=== PATIENT | male | born 1950 | race Caucasian/White ===

== ENCOUNTER 2022-02-26 08:53 | Emergency (ER) | payer MEDICARE, OTHER, SELFPAY ==
--- NOTE | ~2022-02-26 | CT_ITS ---
EXAMINATION: CT brain wo con DATE: 02/26/2022 09:59 INDICATION: Headache. Fall. TECHNIQUE: Computed tomography (CT) of the head was performed without intravenous contrast. The mA wa s adjusted according to patient size. Iterative reconstruction technique was employed. The dose-lengt h product was 605.33 mGy-cm. COMPARISON: None FINDINGS: There is no intracranial hemorrhage, acute infarction, or abnormal intracranial mass lesion . There are scattered areas of low attenuation in the cerebral white matter, which is within normal l imits for the patient's age. The ventricles are normal in size. There are likely changes of ocular le ns replacement surgeries. There is mild mucosal thickening in the paranasal sinuses. The mastoid air cells are normal. IMPRESSION: 1. Normal aging brain. Reviewed, dictated and finalized at location B. IMPRESSION: 1. Normal aging brain.
[2022-02-26 08:59] VITALS: BP 133/99; PULSE 74; RESP 18; TEMP 36.8; O2SAT 98
--- NOTE | 2022-02-26 09:46 | ED.GENADULT ---
HPI - General Adult General Chief complaint: Unspecified Stated complaint: shooting pain in head Time Seen by Provider: 02/26/22 09:12 Source: patient Mode of arrival: ambulatory Limitations: no limitations History of Present Illness HPI narrative: Patient is 71 years old white male drove himself to the emergency room because of intermittent shooting pain at the right forehead usually last for less than 1second comes back every now and then. Patient denies aggravating or relieving factors, he denies any fever, chills, nausea, vomiting, vision trouble, neck pain, chest pain or shortness of breath. History of multiple skin surgery because of skin cancer on the forehead on the side of the face 2 years ago. Related Data Home Medications Medication Instructions Recorded Confirmed latanoprost 0.005 % eye drops 1 drop EACH EYE QPM 10/24/19 Allergies Allergy/AdvReac Type Severity Reaction Status Date / Time No Known Allergies Allergy Unverified 02/26/22 09:02 Review of Systems Review of Systems: CONSTITUTIONAL: Denies fever, chills, or sweats. EYES: Denies visual changes, redness, or discharge. ENT: Denies rhinorrhea, congestion, sore throat, or otalgia. CARDIOVASCULAR: Denies chest pain, palpitations, or edema. RESPIRATORY: Denies cough or dyspnea. GASTROINTESTINAL: Denies abdominal pain, nausea, vomiting, or diarrhea. GENITOURINARY: Denies dysuria or hematuria. SKIN: Denies rash or itching. MUSCULOSKELETAL: Denies back pain, joint pain, or myalgia. NEUROLOGIC: Denies headache, numbness, or weakness. PSYCHIATRIC: Denies anxiety or depression. PMFSH Family History Family History Other Diabetes mellitus Hypertension Social History Social History Smoking status: Former smoker Smoking end date: 11/08/96 Alcohol intake: never Exam Narrative: General appearance: Well-developed, well-nourished Skin: Normal color, right forehead showed subcutaneous cyst 1 x 1 cm, nontender, soft, not red, no discharge otherwise no erythema, no warmth, no open skin, no localized's Head: Normocephalic, nontraumatic Eyes: Clear conjunctiva ENT: Oropharynx normal, ears normal, nose normal Neck: Supple, nontender Chest and respiratory: Airway patent, no respiratory distress, no accessory muscle use Heart: Regular rate/rhythm Abdomen: Soft, nontender, no organomegaly, quiet bowel sounds Vascular: Normal peripheral pulses, normal capillary refill. Musculoskeletal: Normal range of motion, nontender back Neurologic: Alert and oriented ?3, PROGRAM[employer] is normal as tested, no gross motor deficit Course Course Emergency Course: Stable. Patient headache is not specific to anything serious at this time. Work-up and CT scan of the head showed no abnormality to explain patient presentation, patient was advised to use Tylenol, ibuprofen as needed and to follow-up with a neurologist for further evaluation. Vital Signs Vital signs: Vital Signs Temperature 36.8 C 02/26/22 08:59 Pulse Rate 74 02/26/22 08:59 Respiratory Rate 18 02/26/22 08:59 Blood Pressure 133/99 H 02/26/22 08:59 Pulse Oximetry 98 02/26/22 08:59 Temperature 36.8 C 02/26/22 08:59 Pulse Rate 74 02/26/22 08:59 Respiratory Rate 18 02/26/22 08:59 Blood Pressure 133/99 H 02/26/22 08:59 Pulse Oximetry 98 02/26/22 08:59 Medical Decision Making MDM Narrative Medical decision making narrative: Patient presents with nonspecific shooting pain right forehead. Vital Signs Vital Signs: Vital Signs Temperature 36.8 C 02/26/22 08:59 Pulse Rate 74 02/26/22 08:59 Respirato
[2022-02-26 10:32] LABS: Basophils Absolute Auto 0.1 K/mm3 (0.0-0.1); Basophils Percent Auto 0.6 % (0.2-1.2); Eosinophils Absolute Auto 0.3 K/mm3 (0-0.3); Eosinophils Percent Auto 3.6 % (0-4.4); Hematocrit 47.7 % (42.0-52.0); Hemoglobin 15.3 g/dL (14.0-18.0); Immature Granulocyte Absolute 0.04 K/mm3 (0.00-0.031); Immature Granulocyte Percent A 0.5 % (0-0.5); Lymphocytes Absolute Auto 1.76 K/mm3 (0.9-3.2); Lymphocytes Percent Auto 21.1 % (18.3-44.2); Mean Corpuscular HGB Conc 32.1 g/dl (32-36); Mean Corpuscular Volume 96.8 fl (80-100); Mean Platelet Volume 9.5 fl (7.4-10.4); Monocytes Absolute Auto 0.7 K/mm3 (0.1-0.6); Monocytes Percent Auto 8.5 % (2.6-8.5); Neutrophils Absolute Auto 5.5 K/mm3 (1.3-6.7); Neutrophils Percent Auto 65.7 % (45.5-73.1); Platelet Count Result 287 k/mm3 (150-375); Red Blood Count 4.93 M/mm3 (4.6-6.20); Red Cell Distribution Width 13.7 % (11.5-14.5); White Blood Count 8.4 K/mm3 (4.5-10.0)
[2022-02-26 10:43] LABS: Alanine Aminotransferase 21 U/L (4-50); Albumin Level 4.4 g/dL (3.5-5.1); Alkaline Phosphatase 134 U/L (38-126); Anion Gap 5 mmol/L (8-16); Aspartate Amino Transferase 29 U/L (17-59); Bilirubin,Total 0.6 mg/dL (0.2-1.3); Blood Urea Nitrogen 12 mg/dL (9-20); Calcium 9.2 mg/dL (8.4-10.2); Carbon Dioxide 30 mmol/L (22-30); Chloride 104 mmol/L (98-107); Estimated CRCL calculation 63 ml/min; Estimated Glomerular Filt Rate > 60; Glucose 127 mg/dL (65-110); Potassium 4.5 mmol/L (3.4-5.0); Sodium 139 mmol/L (137-145)
[2022-02-26 10:58] LABS: Erythrocyte Sedimentation Rate 14 mm/hr (0-20)
== END 2022-02-26 11:28 | disposition home or self-care (01) ==
PROVIDERS: Emergency Provider Emergency Medicine; PCP Family Medicine
DX: R51.9 Headache, unspecified (principal)
CPT/HCPCS: 36415; 70450; 80053; 85025; 85652; 99284

== ENCOUNTER 2022-04-13 11:44 | Emergency (ER) | payer MEDICARE, OTHER, SELFPAY ==
[2022-04-13] VITALS (8 sets, daily range): BP systolic 139–165; BP diastolic 66–83; PULSE 74–92; RESP 16; TEMP 36.3; O2SAT 94–99
--- NOTE | ~2022-04-13 | XR_ITS ---
XR wrist LT min 3V 04/13/2022 13:37 Indication: Left wrist pain after fall Procedure: 4 views left wrist Comparison: No prior studies for comparison. 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 There are degenerative changes of the first MCP and IP joints. No erosive changes. No acute fracture or traumatic malalignment. No focal soft ti ssue abnormalities. No radiopaque foreign bodies. Impression: 1: No acute fracture. Reviewed, dictated and finalized at location B. Impression: 1: No acute fracture.
--- NOTE | ~2022-04-13 | CT_ITS ---
EXAMINATION: CT brain wo con DATE: 04/13/2022 13:25 INDICATION: Fall. TECHNIQUE: Computed tomography (CT) of the head was performed without intravenous contrast. The mA wa s adjusted according to patient size. Iterative reconstruction technique was employed. Exam dose: 60 5.33 mGy-cm total exam DLP. COMPARISON: 02/26/2022 CT brain FINDINGS: Bilateral carotid siphon internal carotid artery calcifications. There is nonspecific dimin ished attenuation of the cerebral white matter, likely due to chronic small vessel ischemic changes. No intracranial mass lesion or hemorrhage or cerebrovascular accident, midline shift or mass effect e ffect is noted. There is central and cortical cerebral and cerebellar atrophy. The included mastoid air cells and paranasal sinuses are normally developed and aerated. No fracture or bone destruction of the cranial vault. IMPRESSION: No skull fracture or acute intracranial finding Reviewed, dictated and finalized at Location A. Reviewed, dictated and finalized at location A.
--- NOTE | ~2022-04-13 | XR_ITS ---
XR chest 1V 04/13/2022 13:36 Indication: Status post fall. Chest trauma. Procedure: AP view of the chest Comparison: Comparison to multiple prior studies sequentially, with oldest reviewed study dated 02/24 Findings: There is bibasilar atelectasis. The lungs are hyperinflated which is consistent with, but n ot diagnostic of chronic obstructive pulmonary disease. No pneumothorax. Osteopenia. No acute osseous abnormality identified. There are degenerative changes of the shoulders. Impression: 1: Bibasilar atelectasis. Reviewed, dictated and finalized at location B. Impression: 1: Bibasilar atelectasis.
--- NOTE | ~2022-04-13 | CT_ITS ---
EXAMINATION: CT facial & cervical spine wo DATE: 04/13/2022 13:26 INDICATION: Patient fell and struck chin TECHNIQUE: Computed tomography (CT) of the facial bones and maxillofacial region was performed withou t intravenous contrast. Automated exposure control and iterative reconstruction technique were employ ed. Exam dose: 411.19 mGy-cm total exam DLP. COMPARISON: None. FINDINGS: There is a fracture at the junction of the head and neck of the left mandibular condyle. Th ere is fracture of the neck of the right mandible. There appears to be bilateral anterior temporomand ibular dislocation. The frontozygomatic sutures, orbital rims and biggs and zygomatic arches and remainder of the facial bones appear intact. Paranasal sinuses and mastoid air cells are normally developed and aerated. There is minimal anterolisthesis at C4-5. There is minimal retrolisthesis at C5-C6 in association wit h moderate degenerative disc disease. There is mild degenerative disease at the remaining cervical in terspaces. There is fusion at the apophyseal joints of the left at C2-3 and degenerative change at the apophysea l joints elsewhere throughout the cervical spine. Uncovertebral joint spurring is noted in the mid an d lower cervical spine. C1 and C2 are normally aligned and the odontoid process is intact. No recent cervical spine fracture or locked facet. No prevertebral soft tissue swelling. IMPRESSION: Bilateral fracture/dislocation of the mandible Degenerative changes of the cervical spine Reviewed, dictated and finalized at Location [facility]. Reviewed, dictated and finalized at location A.
--- NOTE | ~2022-04-13 | XR_ITS ---
XR elbow LT min 3V 04/13/2022 13:37 INDICATION: Left elbow pain after fall PROCEDURE: 4 views left elbow COMPARISON: No prior studies for comparison. FINDINGS: There is a possible nondisplaced radial head fracture dorsally seen on lateral view only. T he soft tissues appear within normal limits. No foreign bodies are identified. IMPRESSION: 1: Possible nondisplaced radial head fracture posteriorly seen on lateral view only. Recommend conser vative therapy with follow-up x-rays in 7-to 10 days. Reviewed, dictated and finalized at location B. IMPRESSION: 1: Possible nondisplaced radial head fracture posteriorly seen on lateral view only. Recommend conservative therapy with follow-up x-rays in 7-to 10 days.
--- NOTE | 2022-04-13 13:02 | ED_ITS ---
HPI - Fall General Chief Complaint: Fall Stated Complaint: ground level fall Time Seen by Provider: 04/13/22 12:51 Related Data Home Medications Medication Instructions Recorded Confirmed latanoprost 0.005 % eye drops 1 drop ophthalmic (eye) QPM 10/24/19 gabapentin 100 mg capsule cap 04/13/22 04/13/22 Allergies Allergy/AdvReac Type Severity Reaction Status Date / Time No Known Allergies Allergy Verified 04/13/22 12:52 [facility] Past Medical History Medical History (Updated 04/13/22 @ 13:04 by Rafal Elkins DO) COPD (chronic obstructive pulmonary disease) Family History Family History Other Diabetes mellitus Hypertension Social History Social History Smoking status: Former smoker Smoking end date: 11/08/96 Alcohol intake: never Course Vital Signs Vital signs: Vital Signs Temperature 97.4 F L 04/13/22 11:50 Pulse Rate 92 04/13/22 11:50 Respiratory Rate 16 04/13/22 11:50 Blood Pressure 139/83 04/13/22 11:50 Pulse Oximetry 99 04/13/22 11:50 Temperature 97.4 F L 04/13/22 11:50 Pulse Rate 74 04/13/22 13:45 Respiratory Rate 16 04/13/22 13:45 Blood Pressure 150/66 H 04/13/22 13:45 Pulse Oximetry 98 04/13/22 13:45 Discharge Plan Discharge Prescriptions: No Action albuterol sulfate [Ventolin HFA] 90 mcg/actuation HFA aerosol inhaler 1 puff INHALATION Q4H PRN (Reason: shortness of breath or wheezing) Qty: 8 3RF Advair HFA 115-21 mcg/actuation HFA aerosol inhaler 2 puff INHALATION BID Qty: 8 3RF gabapentin 100 mg capsule latanoprost 0.005 % drops 1 drop EACH EYE QPM Follow-up/Referrals: Gerber Wagner MD [Primary Care Provider] -
--- NOTE | 2022-04-13 13:02 | ED.FALL ---
HPI - Fall General Chief Complaint: Fall Stated Complaint: ground level fall Time Seen by Provider: 04/13/22 12:51 Source: RN notes reviewed History of Present Illness HPI Narrative: Patient presents emergency department from home for fall. Patient states proximally 2 hours prior to arrival he was walking his dog when his dog tried to run off on him and pulled him forward states he landed going forward striking his chin and notes a wound to his chin and had some bleeding states he does have pain in his chin he denies full loss of consciousness denies any neck pain he also states several wound on his left arm that were dressed by EMS patient denies any pain in his arms or legs he denies chest pain shortness of breath abdominal pain nausea vomiting or any other symptoms unsure of his last tetanus shot Related Data Home Medications Medication Instructions Recorded Confirmed latanoprost 0.005 % eye drops 1 drop ophthalmic (eye) QPM 10/24/19 gabapentin 100 mg capsule cap 04/13/22 04/13/22 Allergies Allergy/AdvReac Type Severity Reaction Status Date / Time No Known Allergies Allergy Verified 04/13/22 12:52 Review of Systems Review of Systems: Gen.: Denies fevers or chills Eyes: Denies eye pain or visual change ENT: Denies congestion reports jaw pain Respiratory: Denies shortness of breath or cough CV: Denies chest pain or palpitations GI: Denies abdominal pain nausea, emesis Musculoskeletal: Denies back pain or muscle pain Neuro: Denies loss of consciousness Skin: Reports wounds Except as documented, all other systems reviewed and negative COUNT INCLUDES THE [facility] Past Medical History Medical History (Updated 04/13/22 @ 15:55 by Rafal Elkins DO) COPD (chronic obstructive pulmonary disease) Family History Family History Other Diabetes mellitus Hypertension Social History Social History Smoking status: Former smoker Smoking end date: 11/08/96 Alcohol intake: never Exam Narrative: APPEARANCE: No acute distress, nontoxic, resting in bed EYES: EOMI, PERRL HEENT: Normocephalic, nares patent no tenderness of the bilateral cheeks tenderness of the lower inferior jaw with a stellate 3 cm laceration that is V-shaped that is deep mild venous bleeding and no foreign bodies laceration does go down to the bone there is no open wounds inside the jaw Neck: No midline tenderness palpation, mild tenderness bilateral [place] muscles C5-7 RESPIRATORY: No respiratory distress Clear to auscultation bilaterally with no rhonchi wheezing or rales. CARDIOVASCULAR: Regular rate and rhythm without murmurs rubs or gallops. ABDOMINAL: Soft, nontender, nondistended, no rebound or guarding MUSCULOSKELETAl: Moves all extremities. No clubbing, cyanosis or edema. No tenderness of the right upper extremity bilateral lower extremities no tenderness of the left elbow wrist or shoulder full range of motion of both radial pulse 2+ neurovascular tact NEURO: Awake and alert x 3. Following commands, speech normal, no focal deficits SKIN:: Warm, dry. No rashes large superficial skin tear over the left dorsal wrist as well as the left lateral proximal forearm mild venous bleeding no signs of infection PSYCHIATRIC: Normal affect/mood, Course Course Emergency Course: Discussed with patient results of work-up and need to talk with facial plastics which I do not have available they are requesting [facility] Called and discussed with Dr. Harding. Who initially after review of symptoms recommend the patient be discharged home given Augmentin with laceration repair and follow-up in the clinic however they are unable to come in at the patient the clinic and this time is felt the patient is to be transferred to the ED patient is then accepted by Dr. Mariano at the emergency department. Discussed with patient family plan for transfer in [facility]
[2022-04-13] MEDS: TETANUS,DIPHTHERIA,AC PERTUSSIS ADULT (0.5 ML) BOOSTRIX IM (14:19)
[2022-04-13] MEDS: AMPICILLIN SULB 3 GM/NS 100 ML 3 GM/100 ML VIAL IVPB (17:02)
== END 2022-04-13 16:10 | disposition short-term general hospital (02) ==
PROVIDERS: Emergency Provider Emergency Medicine; PCP Family Medicine
DX: S02.609A Fracture of mandible, unspecified, initial encounter for closed fracture (principal); S52.125A Nondisplaced fracture of head of left radius, initial encounter for closed fracture; S01.81XA Laceration without foreign body of other part of head, initial encounter; S40.922A Unspecified superficial injury of left upper arm, initial encounter; J44.9 Chronic obstructive pulmonary disease, unspecified; W01.0XXA Fall on same level from slipping, tripping and stumbling without subsequent striking against object, initial encounter; Z23 Encounter for immunization
CPT/HCPCS: 12013; 70450; 70486; 71045; 72125; 73080; 73110; 90471; 90715; 96374; 96375; 99285; A4565; J0131; J0295

== ENCOUNTER → 2022-09-21 09:56 | Outpatient (CLI) | payer MEDICARE, OTHER, SELFPAY ==
--- NOTE | ~2022-09-21 | US_ITS ---
EXAMINATION: US soft tissue groin LT DATE: 09/21/2022 10:42 INDICATION: Left lower quadrant pain TECHNIQUE: Multiple grayscale and Doppler ultrasound images of the region of pain at the left groin w ere obtained. COMPARISON: None FINDINGS: There is a moderate-sized hernia in the left inguinal region measuring 5.1 cm transversely and 5.0 cm in length. The hernia contains echogenic fat and peristalsing and shadowing bowel which appears incr eased in amount within the hernia sac with Valsalva and decrease in amount but not resolve at the con clusion of Valsalva. The shadowing bowel obscures the region of the orifice of the hernia and is uncl ear whether this represents a direct inguinal hernia, indirect inguinal hernia or potentially femoral hernia. IMPRESSION: 1. Moderate-sized hernia containing peristalsing bowel at the left groin. It is unclear whether this represents a direct inguinal hernia, indirect inguinal hernia or potentially femoral hernia. Reviewed, dictated and finalized at location B. HOLDER IMPRESSION: 1. Moderate-sized hernia containing peristalsing bowel at the left groin. It is unclear whether this represents a direct inguinal hernia, indirect inguinal he rnia or potentially femoral hernia.
== END ==
PROVIDERS: PCP Nurse Practitioner Family; Visit Provider Nurse Practitioner Family
DX: M79.89 Other specified soft tissue disorders (principal); R10.32 Left lower quadrant pain; K46.9 Unspecified abdominal hernia without obstruction or gangrene
CPT/HCPCS: 76882

== ENCOUNTER 2023-03-16 09:55 | Outpatient (CLI) | payer MEDICARE, OTHER, SELFPAY ==
[2023-03-16 14:04] LABS: Hematocrit 45.3 % (42.0-52.0); Hemoglobin 14.5 g/dL (14.0-18.0); Mean Corpuscular Hemoglobin 30.8 pg (26-34); Mean Corpuscular Volume 96.2 fl (80-100); Mean Platelet Volume 9.9 fl (7.4-10.4); Platelet Count Result 307 k/mm3 (150-375); Red Blood Count 4.71 M/mm3 (4.6-6.20); Red Cell Distribution Width 13.5 % (11.5-14.5); White Blood Count 8.8 K/mm3 (4.5-10.0)
[2023-03-16 14:13] LABS: Alanine Aminotransferase 26 U/L (6-50); Albumin Level 4.1 g/dL (3.5-5.1); Alkaline Phosphatase 118 U/L (38-126); Anion Gap 5 mmol/L (8-16); Aspartate Amino Transferase 39 U/L (17-59); Bilirubin,Total 0.8 mg/dL (0.2-1.3); Blood Urea Nitrogen 13 mg/dL (9-20); Calcium 8.8 mg/dL (8.4-10.2); Carbon Dioxide 29 mmol/L (22-30); Chloride 103 mmol/L (98-107); Cholesterol 178 mg/dL (0-200); Estimated Glomerular Filt Rate > 60; Glucose 112 mg/dL (65-110); HDL Direct 35 mg/dL; Potassium 4.1 mmol/L (3.4-5.0); Sodium 137 mmol/L (137-145); Triglycerides 59 mg/dL (<150)
[2023-03-16 14:16] LABS: Appearance Urine Clear (Clear); Bilirubin Urine Negative (Negative); Blood Urine Negative (Negative); Color Urine Yellow (Yellow); Glucose Urine UA Negative (Negative); Ketones Urine Negative (Negative); Leukocyte Esterase Ur Negative LEU/UL (NEGATIVE); Nitrate Urine Negative (Negative); Protein Urine Negative (Negative); Specific Grav Ur 1.021 (1.001-1.035); pH Urine 5.5 (5.0-9.0)
[2023-03-16 14:18] LABS: Add Urine Microscopic? NO
[2023-03-16 14:24] LABS: LDL Cholesterol Direct 125 mg/dL
[2023-03-16 14:33] LABS: Hemoglobin A1C 6.3 % (<5.7)
[2023-03-16 14:41] LABS: Prostate Specific Antigen 1.9 ng/mL (< OR = 4.0)
== END 2023-03-16 09:56 | disposition home or self-care (01) ==
LOC: ANHGOSHLAB 09:59
PROVIDERS: PCP Family Medicine; Visit Provider Physician Assistant
DX: R73.01 Impaired fasting glucose (principal); J44.9 Chronic obstructive pulmonary disease, unspecified; E78.5 Hyperlipidemia, unspecified; Z12.5 Encounter for screening for malignant neoplasm of prostate
CPT/HCPCS: 36415; 80053; 80061; 81003; 83036; 84153; 84443; 85027; G0103

== ENCOUNTER 2023-03-25 10:28 | Outpatient (CLI) | payer MEDICARE, OTHER, SELFPAY ==
--- NOTE | 2023-03-25 10:30 | ECG_ITS ---
Measurements Intervals [place] Rate: 75 P: 40 AK: 168 QRS: 70 QRSD: 90 T: 64 QT: 366 QTc: 411 Interpretive Statements SINUS RHYTHM BASELINE ARTIFACT- I, II, III, AVR, AVL, AVF, V1-V2 NORMAL ECG NO PREVIOUS ECG AVAILABLE FOR COMPARISON Electronically Signed On 03-25-2023 11:48:08 CDT by Anton Berger D.O.
== END 2023-03-25 10:29 | disposition home or self-care (01) ==
PROVIDERS: PCP Family Medicine; Visit Provider Surgery
DX: Z01.818 Encounter for other preprocedural examination (principal); K40.90 Unilateral inguinal hernia, without obstruction or gangrene, not specified as recurrent; Z87.891 Personal history of nicotine dependence
CPT/HCPCS: 36415; 86850; 86900; 86901; 93005

== ENCOUNTER 2023-03-30 00:06 | Day surgery (SDC) | payer MEDICARE, OTHER, SELFPAY ==
--- NOTE | 2022-11-23 13:11 | PC.NURSE ---
Report to the Outpatient Waiting Room, entrance under the green pavilion located off [facility], at time _0830 on date __12/02/22 . Planned Procedure Time: __1030 . Time changes happen often and if your time is changed the preop area will call you the afternoon before. - You and your visitor will be asked to self-screen and do not enter if you have any COVID symptoms. - Only one visitor is requested with a max of two and NO children visitors are allowed at this time. - The patient visitor may be requested to leave or wait in car when not with patient due to distancing restrictions. - A mask is optional within the hospital. Patients may have clear liquids (water, carbonated beverages, clear teas, apple juice) until 3 hours prior to surgery with a maximum of 20 ounces. - No food from midnight until time of surgery - Infants may have breast milk until 4 hours before surgery, formula 6 hours prior to surgery. - Children will be allowed to drink immediately following surgery. If applicable, please bring a bottle or sippy cup to assist with drinking. Juice, water, soda, and popsicles are readily available. For infants on formula, please bring formula the day of surgery. Pacifiers are allowed. Take the following medications with a SIP of water the morning of surgery: __ADVAIR INHALER Medications to discontinue per physician ALL VITAMIN AND SUPPLEMENTS 3 DAYS PRE OP LAST DOSE 11/28/22 HIBICLENS SHOWER MORNING OF SURGERY Please no make-up, nail yi, hairspray, perfume, deodorant, or body powder the day of surgery. No jewelry (including any body piercings) or valuables the day of surgery, leave them at home. Please take a shower or bath the night before, or the morning of, surgery with an antibacterial soap. Wear comfortable, loose fitting clothing. Children are encouraged to wear pajamas. - Jewelry must be removed prior to entering the operating room. Rings and piercings that are not removed may be cut off. - The hospital will not accept responsibility for valuables. - Please leave all valuables, including medications, at home the day of surgery. If you are going home after surgery, a licensed drivers' cash clerk must drive you home. - NO public transportation without another adult if you receive anesthesia. - We recommend that an adult stay with you for 24 hours following discharge. - We also recommend that you do not drive, make important decision, drink alcoholic beverages, or take any drugs that were not prescribed by your health care provider for at least 24 hours after your discharge time. Follow any additional instructions given to you from your surgeon. If you or anyone in your household have experienced Covid symptoms in the past week, please notify your surgeon or the nurse liaison at the phone number below for possible testing. Telephone instructions given to ___PATIENT and asked if any additional questions and then verbalized understanding. Patient advised to call surgeon office or pre surgery nurse liaison [phone] if any additional questions.
[2022-11-23 13:18] VITALS: BMI 26.3
[2023-03-22 12:58] VITALS: BMI 26.3
--- NOTE | 2023-03-22 13:04 | PC.NURSE ---
Report to the Outpatient Waiting Room, entrance under the green pavilion located off [facility], at time __1100 on date ___03/30/23____. Planned Procedure Time: ___1300 . Time changes happen often and if your time is changed the preop area will call you the afternoon before. - You and your visitor will be asked to self-screen and do not enter if you have any COVID symptoms. - A mask is optional within the hospital at this time. Patients may have clear liquids (water, carbonated beverages, clear teas, apple juice) until 3 hours prior to surgery with a maximum of 20 ounces. - No food from midnight until time of surgery - Infants may have breast milk until 4 hours before surgery, infant formula 6 hours prior to surgery. - Children will be allowed to drink immediately following surgery. If applicable, please bring a bottle or sippy cup to assist with drinking. Juice, water, soda, and popsicles are readily available. For infants on formula, please bring formula the day of surgery. Pacifiers are allowed. Take the following medications with a SIP of water the morning of surgery: ____ADVAIR INHALER DO NOT STOP ANY OF YOUR OTHER PRESCRIPTION MEDICATIONS PRIOR TO SURGERY ?EXCEPT THE FOLLOWING Medications to discontinue per physician _ALL VITAMINS/SUPPLEMENTS 3 DAYS PRE OP.LAST DOSE 03/26/23 Please no make-up, nail [place], hairspray, perfume, deodorant, or body powder the day of surgery. No jewelry (including any body piercings) or valuables the day of surgery, leave them at home. Please take a shower or bath the night before, or the morning of, surgery with an antibacterial soap. Wear comfortable, loose fitting clothing. Children are encouraged to wear pajamas. - Jewelry must be removed prior to entering the operating room. Rings and piercings that are not removed may be cut off. - The hospital will not accept responsibility for valuables. - Please leave all valuables, including medications, at home the day of surgery. HIBICLENS SHOWER MORNING OF SURGERY If you are going home after surgery, a licensed test driver must drive you home. - NO public transportation without another adult if you receive anesthesia. - We recommend that an adult stay with you for 24 hours following discharge. - We also recommend that you do not drive, make important decision, drink alcoholic beverages, or take any drugs that were not prescribed by your health care provider for at least 24 hours after your discharge time. For Pediatric surgeries, we recommend two adults accompany the child home. Follow any additional instructions given to you from your surgeon. If you or anyone in your household have experienced Covid symptoms in the past week, please notify your surgeon or the nurse liaison at the phone number below for possible testing. Telephone instructions given to ___PATIENT and asked if any additional questions and then verbalized understanding. Patient advised to call surgeon office or pre surgery nurse liaison [phone] if any additional questions.
[2023-03-30] VITALS (11 sets, daily range): BP systolic 93–129; BP diastolic 43–65; PULSE 68–95; RESP 13–19; TEMP 36.1–36.7; O2SAT 92–99; BMI 25.9
[2023-03-30] MEDS: ACETAMINOPHEN 500 MG TABLET 1000 MG PO (11:29)
[2023-03-30] MEDS: KETOROLAC 15 MG/ML VIAL (*BKC) IV PUSH (11:30)
[2023-03-30] MEDS: LACTATED RINGERS 1,000 ML 30 ML IV CONT ×2 (11:30→15:15)
--- NOTE | 2023-03-30 12:33 | WPDHPUPDATE1 ---
History and Physical Update Update Date/Time: 03/30/23 12:33 History and Physical has been reviewed, including an updated exam of the patient. There are NO changes in the patient's condition. Risks, benefits, and alternatives have been discussed and questions answered. Patient agrees to proceed with procedure.
--- NOTE | 2023-03-30 12:34 | PM.IMHP ---
H&P: HPI History of Present Illness Date/Time: 03/30/23 12:34 Chief Complaint: Left inguinal hernia Narrative: This is a 72-year-old man presents left inguinal hernia repair. He has been experiencing symptoms from this hernia for several years. He reports no changes since last seen the office. Review of Systems Review of Systems: All systems reviewed & are unremarkable except as noted in HPI and below Constitutional: Constitutional: Denies chills, Denies fever(s), Denies headache(s) and Denies weight loss Eyes: Eyes: Denies change in vision ENT: Denies dizziness, Denies headache(s), Denies neck mass and Denies throat swelling Cardiovascular: Cardiovascular: Denies chest pain, Denies lightheadedness and Denies dyspnea Respiratory: Respiratory: Denies cough, Denies dyspnea and Denies wheezing Gastrointestinal: Gastrointestinal: Denies abdominal pain, Denies change in bowel habits, Denies nausea and Denies vomiting Genitourinary: Genitourinary: Denies hematuria and Denies dysuria Musculoskeletal: Musculoskeletal: Reports as per HPI Integumentary/Breasts: Skin/Breast: Reports as per HPI Neurologic: Denies dizziness and Denies headache(s) Allergic/Immunologic: Allergic/Immunologic: Denies throat swelling and Denies wheezing PMFSH Past Medical History Medical History COPD (chronic obstructive pulmonary disease) Hepatitis B Other specified soft tissue disorders Skin cancer Surgical History Surgical History H/O right inguinal hernia repair H/O umbilical hernia repair Family History Family History Other Diabetes mellitus Hypertension Social History Social History Smoking packs per day: 2 Smoking cigarettes per day: 40.0 Years smoked: 15 Smoking pack-years: 30.00 Smoking status: Former smoker Tobacco type: cigarettes Smoking end date: 11/08/01 Alcohol intake: never Living arrangements: with family Occupation/Education: retired Spiritual care concerns: No Meds Home Medications and Allergies Home Medications Medication Instructions Recorded Confirmed Type latanoprost 0.005 % eye drops 1 drop ophthalmic (eye) QPM 10/24/19 03/22/23 History fluticasone propionate 115 2 puff inhalation BID #8 grams 04/22/22 03/30/23 Rx mcg-salmeterol 21 mcg/actuation HFA inhaler (Advair HFA) vitamins A,C,K-rnsy-aspkhs 4,296 1 cap PO DAILY 11/23/22 12/15/22 History mcg-226 mg-90 mg capsule (PreserVision AREDS) albuterol sulfate 90 mcg/actuation 1 puff inhalation Q4H PRN 01/13/23 03/22/23 Rx aerosol inhaler (Ventolin HFA) shortness of breath or wheezing #8 grams Allergies Allergy/AdvReac Type Severity Reaction Status Date / Time No Known Allergies Allergy Verified 03/30/23 12:29 Exam Const: General: no acute distress and alert Orientation/consciousness: patient oriented x3 HENMT: Head: normocephalic and atraumatic Ears: hearing grossly normal bilaterally Face/Nose/Sinus: Normal nares present Mouth: Yes Normal oral and palatal mucosa present Eyes: Periorbital: periorbital findings normal Sclera: sclerae normal EOM: EOMs intact bilaterally Neck: Neck: normal visual inspection, no lymphadenopathy and trachea midline Chest: Chest palpation & inspection: normal inspection of the chest Resp: Effort & Inspection: normal respiratory effort Auscultation: clear to auscultation bilaterally Cardio: Jugular venous distension: no JVD Rate: regular rate Rhythm: regular rhythm Heart sounds: S1 normal heart sound present and S2 normal heart sound present Peripheral pulses: Peripheral pulses 2+ throughout GI: Inspection: normal to inspection GI Palp: Yes Soft to palpation, No Tenderness to palpation present (GI), No Guarding due to palpation present (
--- NOTE | 2023-03-30 12:44 | WPDANESEPPF ---
Anes - Initial Pre Proc Eval Procedure: Operation Date: 12/02/22 10:30 Proposed Procedures p Laparoscopic Left Inguinal Hernia Repair with Mesh, Chris Assisted - Thomas Barber DO Operation Date: 03/30/23 13:00 Proposed Procedures p Laparoscopic Left Inguinal Hernia Repair with Mesh, Heverincreji Assisted - Thomas Barber DO Date/Time: 03/30/23 12:44 Surgeon: Thomas Barber DO Pre Op Diagnosis: Lt Ing Hernia Patient Data Age: 72 Gender: M Height: 1.7 m Weight: 75.1 kg Last Vital Signs Temp 36.7 C 03/30/23 11:05 Pulse 95 03/30/23 11:05 Resp 18 03/30/23 11:05 BP 129/59 L 03/30/23 11:05 Pulse Ox 96 03/30/23 11:05 O2 Del Method Room Air 03/30/23 11:05 Allergies Allergy/AdvReac Type Severity Reaction Status Date / Time No Known Allergies Allergy Verified 03/30/23 12:29 Home Medications Medication Instructions Recorded Confirmed Type latanoprost 0.005 % eye drops 1 drop ophthalmic (eye) QPM 10/24/19 03/22/23 History fluticasone propionate 115 2 puff inhalation BID #8 grams 04/22/22 03/30/23 Rx mcg-salmeterol 21 mcg/actuation HFA inhaler (Advair HFA) vitamins A,C,Q-opdl-wyifjo 4,296 1 cap PO DAILY 11/23/22 03/30/23 History mcg-226 mg-90 mg capsule (PreserVision AREDS) albuterol sulfate 90 mcg/actuation 1 puff inhalation Q4H PRN 01/13/23 03/22/23 Rx aerosol inhaler (Ventolin HFA) shortness of breath or wheezing #8 grams Patient hx anesthesia problems: none Family hx anesthesia problems: none Results Review: All pre-operative results and documents have been reviewed as part of the pre-operative evaluation. [facility] Past Medical History Medical History COPD (chronic obstructive pulmonary disease) Hepatitis B Other specified soft tissue disorders Skin cancer Surgical History Surgical History H/O right inguinal hernia repair H/O umbilical hernia repair Family History Family History Other Diabetes mellitus Hypertension Social History Social History Smoking packs per day: 2 Smoking cigarettes per day: 40.0 Years smoked: 15 Smoking pack-years: 30.00 Smoking status: Former smoker Tobacco type: cigarettes Smoking end date: 11/08/01 Alcohol intake: never Living arrangements: with family Occupation/Education: retired Spiritual care concerns: No Anes - Eval Final PreProcedure Day of Procedure 03/30/23 12:44 Patient weight: overweight Heart: regular rate and rhythm Lungs: clear to auscultation Airway: Mallampati scale class II Neurological: alert and oriented Last oral intake: >/= 8 hours ASA classification: III Emergent: no Anesthetic plan: proceed Anesthesia type and monitoring: general ETT and standard monitoring Results Review: All pre-operative results and documents have been reviewed as part of the pre-operative evaluation. Informed Consent: The patient's anesthetic plan and its attendant risks and benefits were discussed with the patient/family/POA. Questions were solicited and answers provided to the satisfaction of the patient/family/POA.
[2023-03-30] MEDS: ceFAZolin 2 GM/D5W 50 ML 2 GM/50 ML BAG IVPB (12:56)
[2023-03-30] MEDS: BUPIVACAINE/EPINEPHRINE 0.5% 50 ML VIAL 30 ML INFILTRATE (13:42)
--- NOTE | 2023-03-30 14:53 | W.PM.PROC2 ---
Procedure Note - Detailed Date of Procedure 03/30/23 Pre-op Diagnosis Left inguinal hernia Post-op Diagnosis Other (Incarcerated left inguinal hernia, small bowel adhesions) Procedure Performed 1. Laparoscopic incarcerated left inguinal hernia repair with mesh, da Carline assisted 2. Laparoscopic enterolysis, da Carline assisted 3. Laparoscopic repair of small-bowel serosal tear, da Carline assisted Surgeon Thomas Barber, DO Anesthesia General and Local (0.5% bupivacaine with epinephrine) Indications This is a 72-year-old man who presented with a left inguinal hernia that he noticed a few years ago. It has progressively increased in size, but does not cause any significant pain. He does have occasional discomfort, but when he does lay down the size of the hernia usually decreases. He was found to have a left inguinal hernia on exam. Discussions were made with the patient about treatment options and decision was made to proceed with robotic assisted laparoscopic left inguinal hernia repair with mesh. Findings Upon inspecting the abdomen laparoscopically, there did appear to be small bowel adhesions up to the previous umbilical hernia repair mesh. I had to take these adhesions down to adequately visualize the lower abdomen for the hernia repair. These small bowel adhesions were tethered very closely to the mesh and there were 2 small bowel serosal injuries the surface as the adhesiolysis was performed. These serosal tears were inherent to the nature of this surgery. The serosal tears were repaired using 3-0 Vicryl Lembert imbricating sutures. I did not see any full-thickness bowel injuries or any other significant abnormalities. Upon inspecting the left lower quadrant I did identify a left indirect inguinal hernia that was containing sigmoid colon. This was very difficult to reduce at 1st and took a significant amount adhesiolysis order to completely reduce the sigmoid from within the hernia defect. The sigmoid colon all appeared healthy and viable. Robotic transabdominal preperitoneal approach was then utilized for left hernia repair. Placed a large left Bard 3DMax mid mesh overlying the entire left myopectineal orifice. No specimens were obtained for pathology. Description of Procedure Procedure as well as risks, benefits, and alternatives were discussed with the patient. Written consent was obtained and placed in chart prior to procedure. Patient was brought back to surgical suite. He was placed supine on operating table. Time-out was done to confirm patient and procedure. He was then intubated by Anesthesia Department. His abdomen was prepped and draped in sterile fashion using chlorhexidine prep. 0.5% bupivacaine with epinephrine was infiltrated at each location for incision. An 8 mm incision was made in the left lateral abdomen, and a 5 mm Optiview trocar was advanced through the abdominal layers under direct visualization. Once inside the abdominal cavity, carbon dioxide insufflation was used to create a pneumoperitoneum. A camera was inserted and the abdominal cavity was inspected. The patient was placed in slight Trendelenburg position. An 8 millimeter incision was made on the right lateral abdomen and an 8 millimeter trocar was inserted under direct visualization. Another 8 millimeter incision was made just superior to the umbilicus and an 8 millimeter trocar was inserted under direct visualization. The 5 mm port was then removed and this was replaced with another 8 mm robotic port. The robotic arms were brought up to the patient's bedside and secured to the ports. The camera and instruments were inserted. I then moved over to the robotic console and took control of the camera and instruments. There were 2 loops of small bowel adherent to an umbilical hernia mesh. These adhesions were carefully taken down using curved scissors. Once I was able to take both these loops of small bowel down the rest of the mesh appeared visible and intact a
[2023-03-30] MEDS: fentaNYL CITRATE INJ (*CRX) 100 MCG/2 ML VIAL 25 MCG IV PUSH (16:15)
[2023-03-30] MEDS: oxyCODONE HCL (*CRX) 5 MG TAB IR PO (17:10)
== END 2023-03-30 18:25 | disposition home or self-care (01) ==
PROVIDERS: PCP Family Medicine; Visit Provider Surgery
PROC: 8E0Y4CZ Robotic Assisted Procedure of Lower Extremity, Percutaneous Endoscopic Approach (ICD-10-PCS; CPT 49650; principal; 2023-03-30 13:00)
DX: K40.30 Unilateral inguinal hernia, with obstruction, without gangrene, not specified as recurrent (principal); K66.0 Peritoneal adhesions (postprocedural) (postinfection); K91.72 Accidental puncture and laceration of a digestive system organ or structure during other procedure; J44.9 Chronic obstructive pulmonary disease, unspecified; Z79.51 Long term (current) use of inhaled steroids; Z87.891 Personal history of nicotine dependence
CPT/HCPCS: 49650; 44238; S2900; A9270; C1781; J0690; J1100; J1170; J1885; J2370; J2405; J2704; J2710; J3010; J7120

== ENCOUNTER → 2023-05-19 10:24 | Outpatient (CLI) | payer MEDICARE, OTHER, SELFPAY ==
--- NOTE | ~2023-05-19 | CT_ITS ---
EXAMINATION: CT abdomen pelvis w con DATE: 05/19/2023 10:53 INDICATION: Left inguinal hernia without obstruction TECHNIQUE: Computed tomography (CT) of the abdomen and pelvis was performed with 100 mL Omnipaque-350 intravenous contrast. Automated exposure control and iterative reconstruction technique were employe d. The dose-length product was 596.07 mGy-cm. COMPARISON: CT dated 03/06/2004 FINDINGS: Mild emphysema at the lung bases. Mild discoid atelectasis at the dependent lung bases, right greater than left. Heart size is normal. No pericardial or pleural effusion. Liver, decompressed gallbladder , spleen, bilateral adrenal glands and kidneys are normal. Dystrophic calcifications at the head and uncinate process of the pancreas along with a 1.3 cm cystic lesion at the uncinate process likely seq uela of chronic pancreatitis. Bladder is normal. Prostatomegaly. No bowel obstruction. Postoperative change of prior left inguinal hernia repair. No evident recurrent hernia. No free intraperitoneal gas or fluid. No pathologically enlarged abdominal or pelvic lymphadenopathy. Severe lumbar spondylosis with anterior fusion at L1-L2. Left total hip arthroplasty. IMPRESSION: 1. Postoperative change of left inguinal hernia repair with no evident recurrent hernia or bowel obst ruction. 2. 1.3 cm cystic lesion at the uncinate process of the pancreas where there are some dystrophic calci fic location consistent with chronic pancreatitis which would favor a dilated side branch or pseudocy st as etiology of the cystic lesion. The differential diagnosis would also include less likely intrad uctal papillary mucinous neoplasm (IPMN), mucinous cystic neoplasm (MCN), and the less common serous cystadenoma and neuroendocrine tumor. Recommend year follow-up pre and postcontrast MRI or CT. 3. Prostatomegaly. Reviewed, dictated and finalized at location A. IMPRESSION: 1. Postoperative change of left inguinal hernia repair with no evident recurren t hernia or bowel obstruction. 2. 1.3 cm cystic lesion at the uncinate process of the pancreas where there are some dystrophic calcific location consistent with chronic pancreatitis which w ould favor a dilated side branch or pseudocyst as etiology of the cystic lesion . The differential diagnosis would also include less likely intraductal papilla ry mucinous neoplasm (IPMN), mucinous cystic neoplasm (MCN), and the less commo n serous cystadenoma and neuroendocrine tumor. Recommend year follow-up pre and postcontrast MRI or CT. 3. Prostatomegaly.
[2023-05-19 10:43] LABS: Estimated Glomerular Filt Rate > 60
== END ==
PROVIDERS: PCP Family Medicine; Visit Provider Surgery
DX: K40.90 Unilateral inguinal hernia, without obstruction or gangrene, not specified as recurrent (principal); N40.0 Benign prostatic hyperplasia without lower urinary tract symptoms; K86.9 Disease of pancreas, unspecified
CPT/HCPCS: 74177; Q9967

== ENCOUNTER 2023-07-28 00:09 | Day surgery (SDC) | payer MEDICARE, OTHER, SELFPAY ==
--- NOTE | 2023-07-22 13:23 | PC.NURSE ---
Report to the Outpatient Waiting Room, entrance under the green pavilion located off [facility], at time _0600 on date _07/28/23 . Planned Procedure Time: __0730 . Time changes happen often and if your time is changed the preop area will call you the afternoon before. - You and your visitor will be asked to self-screen and do not enter if you have any COVID symptoms. - A mask is optional within the hospital at this time. Patients may have clear liquids (water, carbonated beverages, clear teas, apple juice) until 3 hours prior to surgery with a maximum of 20 ounces. - No food from midnight until time of surgery - Infants may have breast milk until 4 hours before surgery, formula 6 hours prior to surgery. - Children will be allowed to drink immediately following surgery. If applicable, please bring a bottle or sippy cup to assist with drinking. Juice, water, soda, and popsicles are readily available. For infants on formula, please bring formula the day of surgery. Pacifiers are allowed. Take the following medications with a SIP of water the morning of surgery: ___ADVAIR INHALER DO NOT STOP ANY OF YOUR OTHER PRESCRIPTION MEDICATIONS PRIOR TO SURGERY ?EXCEPT THE FOLLOWING Medications to discontinue per physician ____PRESERVISION HOLD 3 DAYS PRE OP.LAST DOSE07/24/23 Please no make-up, nail portuguese, hairspray, perfume, deodorant, or body powder the day of surgery. No jewelry (including any body piercings) or valuables the day of surgery, leave them at home. Please take a shower or bath the night before, or the morning of, surgery with an antibacterial soap. Wear comfortable, loose fitting clothing. Children are encouraged to wear pajamas. - Jewelry must be removed prior to entering the operating room. Rings and piercings that are not removed may be cut off. - The hospital will not accept responsibility for valuables. - Please leave all valuables, including medications, at home the day of surgery. If you are going home after surgery, a licensed semi driver must drive you home. - NO public transportation without another adult if you receive anesthesia. - We recommend that an adult stay with you for 24 hours following discharge. - We also recommend that you do not drive, make important decision, drink alcoholic beverages, or take any drugs that were not prescribed by your health care provider for at least 24 hours after your discharge time. For Pediatric surgeries, we recommend two adults accompany the child home. Follow any additional instructions given to you from your surgeon. If you or anyone in your household have experienced Covid symptoms in the past week, please notify your surgeon or the nurse liaison at the phone number below for possible testing. Telephone instructions given to _PATIENT and asked if any additional questions and then verbalized understanding. Patient advised to call surgeon office or pre surgery nurse liaison [phone] if any additional questions.
[2023-07-22 13:28] VITALS: BMI 26.3
--- NOTE | 2023-07-27 14:38 | WPDANESEPPF ---
Anes - Initial Pre Proc Eval Procedure: Operation Date: 07/28/23 07:30 Proposed Procedures p Excision of Neoplasm Right Medial Forehead, Excision Neoplasm Right Nasal Sidewall with Frozen Section, Possible Full Thickness Skin Graft or Local Tissue Transfer - Rafal Salinas MD Date/Time: 07/27/23 14:38 Surgeon: Rafal Salinas MD Pre Op Diagnosis: Neoplasm Right Medial Forehead (Cont) Patient Data Age: 72 Gender: M Height: 1.7 m Weight: 76.3 kg Allergies Allergy/AdvReac Type Severity Reaction Status Date / Time No Known Allergies Allergy Verified 07/27/23 11:15 Home Medications Medication Instructions Recorded Confirmed Type latanoprost 0.005 % eye drops 1 drop ophthalmic (eye) QPM 10/24/19 07/27/23 History vitamins A,C,T-ceho-axnmdd 4,296 1 cap PO DAILY 11/23/22 07/27/23 History mcg-226 mg-90 mg capsule (PreserVision AREDS) albuterol sulfate 90 mcg/actuation 1 puff inhalation Q4H PRN 06/15/23 07/27/23 Rx aerosol inhaler (Ventolin HFA) shortness of breath or wheezing #8 grams fluticasone propionate 115 2 puff inhalation BID #24 grams 06/16/23 07/27/23 Rx mcg-salmeterol 21 mcg/actuation HFA inhaler (Advair HFA) tamsulosin 0.4 mg capsule (Flomax) 0.8 mg PO QHS #60 caps 07/27/23 07/27/23 Rx Patient hx anesthesia problems: none Family hx anesthesia problems: none Results Review: All pre-operative results and documents have been reviewed as part of the pre-operative evaluation. [facility] Past Medical History Medical History BPH w urinary obs/LUTS COPD (chronic obstructive pulmonary disease) Cyst of pancreas Hepatitis B Other specified soft tissue disorders Skin cancer Surgical History Surgical History H/O right inguinal hernia repair H/O umbilical hernia repair S/P inguinal hernia repair Laparoscopic incarcerated left inguinal hernia repair with mesh, da Carline assisted 2. Laparoscopic enterolysis, da Carline assisted 3. Laparoscopic repair of small-bowel serosal tear, da Carline assisted 03/30/23 Family History Family History Other Diabetes mellitus Hypertension Social History Social History Smoking packs per day: 2 Smoking cigarettes per day: 40.0 Years smoked: 15 Smoking pack-years: 30.00 Smoking status: Former smoker Tobacco type: cigarettes Smoking end date: 11/08/01 Alcohol intake: never Living arrangements: with family Occupation/Education: retired Spiritual care concerns: No Anes - Eval Final PreProcedure Day of Procedure 07/27/23 14:38 Patient weight: normal Heart: regular rate and rhythm Lungs: clear to auscultation Airway: Mallampati scale class II Neurological: alert and oriented Last oral intake: >/= 8 hours ASA classification: II Emergent: no Anesthetic plan: proceed Anesthesia type and monitoring: general GIVS and LMA and standard monitoring Results Review: All pre-operative results and documents have been reviewed as part of the pre-operative evaluation. Informed Consent: The patient's anesthetic plan and its attendant risks and benefits were discussed with the patient/family/POA. Questions were solicited and answers provided to the satisfaction of the patient/family/POA.
[2023-07-28] MEDS: LACTATED RINGERS 1,000 ML 30 ML IV CONT ×2 (06:45→08:57)
[2023-07-28 07:00] VITALS: BP 153/60; PULSE 85; RESP 16; TEMP 36.6; O2SAT 98
--- NOTE | 2023-07-28 07:21 | WPDHPUPDATE1 ---
History and Physical Update Update Date/Time: 07/28/23 07:21 History and Physical has been reviewed, including an updated exam of the patient. There are NO changes in the patient's condition. Risks, benefits, and alternatives have been discussed and questions answered. Patient agrees to proceed with procedure.
[2023-07-28] MEDS: LIDO 1%/EPINEPHRINE 1:100,000 20 ML VIAL 6 ML INFILTRATE (08:08)
[2023-07-28] MEDS: BACITRACIN OINTMENT 15 GM TUBE 1 APPLIC TOPICAL (08:49)
[2023-07-28 08:57] VITALS: BP 121/60; PULSE 97; RESP 18; TEMP 36.6; O2SAT 92
--- NOTE | 2023-07-28 09:08 | W.PM.PROC2 ---
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 He was then taken to the operating room where he was placed supine on the operating table. He was given sedation anesthesia with an LMA. The face was entirely prepped with Betadine. The 2 sites were carefully examined and marked for peripheral excision and locally infiltrated with 1% lidocaine with epinephrine. The lesion from the right nasal sidewall was taken 1st as a full-thickness skin ellipse with the suture marking the most superior aspect as 12 o'clock. This was sent for frozen section the pathologist revealed that this was a basal cell carcinoma and all margins are free. In the interim the lesion from the right forehead was excised through full-thickness of skin. The specimen sent for permanent section. The wound margins were undermined in all directions and coapted with intradermal 4-0 Vicryl sutures approximating margins. Standing cones removed both ends and the skin closed with running 5 0 nylon. The wound site on the right nasal sidewall was then repaired with a local tissue transfer inset with 4-0 Vicryl suture and closed with interrupted 5 0 nylon. Estimated Blood Loss 10 Drains No Packing No Pathology Yes Complications No immediate complications Condition Stable Disposition Same day
[2023-07-28 09:10] VITALS: BP 106/60; PULSE 83; RESP 16; O2SAT 93
[2023-07-28 09:15] VITALS: BP 129/70; PULSE 84; RESP 20
[2023-07-28 09:45] VITALS: BP 129/70; PULSE 84; RESP 20
[2023-07-28 10:10] VITALS: BP 125/55; PULSE 79; RESP 20
== END 2023-07-28 10:15 | disposition home or self-care (01) ==
PROVIDERS: PCP Family Medicine; Visit Provider Plastic Surgery
PROC: (CPT 11642; principal; 2023-07-28 07:30)
DX: C44.311 Basal cell carcinoma of skin of nose (principal); C44.319 Basal cell carcinoma of skin of other parts of face; J44.9 Chronic obstructive pulmonary disease, unspecified; B19.10 Unspecified viral hepatitis B without hepatic coma; N40.1 Benign prostatic hyperplasia with lower urinary tract symptoms; Z79.51 Long term (current) use of inhaled steroids; Z87.891 Personal history of nicotine dependence
CPT/HCPCS: 11642; 12052; 14060; 88304; 88305; 88331; A9270; J2371; J2405; J2704; J3010; J7120

== ENCOUNTER 2023-08-18 11:28 | Outpatient (CLI) | payer MEDICARE, OTHER, SELFPAY ==
[2023-08-18 20:01] LABS: Alanine Aminotransferase 22 U/L (6-50); Albumin Level 4.1 g/dL (3.5-5.1); Alkaline Phosphatase 104 U/L (38-126); Anion Gap 6 mmol/L (8-16); Aspartate Amino Transferase 35 U/L (17-59); Bilirubin,Total 0.6 mg/dL (0.2-1.3); Blood Urea Nitrogen 15 mg/dL (9-20); Carbon Dioxide 29 mmol/L (22-30); Chloride 103 mmol/L (98-107); Estimated Glomerular Filt Rate > 60; Glucose 122 mg/dL (65-110); Potassium 3.7 mmol/L (3.4-5.0); Sodium 138 mmol/L (137-145)
[2023-08-18 20:16] LABS: Hepatitis B Surface Antigen Negative (Negative)
[2023-08-18 20:22] LABS: HAV RESULT Negative (Negative); Hepatitis B Core IgM Result Negative (Negative)
[2023-08-18 20:42] LABS: Hepatitis B Surface Anti Res Positive; Hepatitis C Virus Antibody Negative (Negative)
[2023-08-21 10:58] LABS: Hepatitis B DNA PCR Not Detected
[2023-08-21 19:39] LABS: Hepatitis Be Antigen Nonreactive
== END 2023-08-18 11:29 | disposition home or self-care (01) ==
PROVIDERS: PCP Family Medicine; Visit Provider Nurse Practitioner
DX: B18.1 Chronic viral hepatitis B without delta-agent (principal); B19.10 Unspecified viral hepatitis B without hepatic coma; Z86.19 Personal history of other infectious and parasitic diseases
CPT/HCPCS: 36415; 80053; 80074; 86706; 87340; 87350; 87517

== ENCOUNTER 2023-12-09 10:07 | Outpatient (CLI) | payer MEDICARE, OTHER, SELFPAY ==
--- NOTE | 2023-12-09 16:29 | WPDSIXMINUTE ---
Six Minute Walk Procedure Procedure Performed Pulmonary Stress Test (6 min walk) Six Minute Walk Six Minute Walk: This is a 6 minute walk test. The test was performed and interpreted in accordance with the 2014 ERS/ATS task force guidelines. Findings: The patient's resting room air oxygen saturation measured by pulse oximetry was 93% and heart rate was 81 bpm. Patient ambulated for 305 meters and oxygen saturation remained 91%. Heart rate at the end of the study was 105 bpm. The patient did not qualify for supplemental oxygen at rest or with ambulation. There are no prior studies for comparison.
--- NOTE | 2023-12-09 16:30 | WPDPFTINT ---
PFT Procedure Performed PFT Procedure Performed Spirometry with Pre/Post Bronchodilator Plethysmography (Lung Vol) Diffusing Cap (DLCO) Flow Vol Loop PFT Interpretation This is a pulmonary function test with pre and post-bronchodilator spirometry, plethysmography and diffusing capacity. The test was performed and results interpreted in accordance with the 2019 and 2005 ATS/ERS Task Force guidelines respectively using the Global Lung Function Initiative-2012 reference equations. Patient demonstrated good effort and cooperation. Reproducibility criteria were met. The quality of the pre bronchodilator spirometry maneuver was Grade A and post bronchodilator spirometry maneuver was Grade A. Findings: Spirometry: There is decreased maximal expiratory airflow at all lung volumes with concave expiratory flow tracing. The contour the inspiratory flow tracing is normal. The pre bronchodilator FVC is 3.02 L, 127% predicted. The pre bronchodilator FEV1 is 1.04 L, 56% predicted. The pre bronchodilator FEV1: FVC ratio is 34%. The post bronchodilator FVC is 2.97 L, representing a 2% decrease. The post bronchodilator FEV1 is 1.07 L, representing a 3% increase. The post bronchodilator FEV1: FVC ratio is 36%. Plethysmography: The total lung capacity is 5.83 L, 139% predicted. The functional residual capacity is 3.98 L, 191% predicted. The residual volume is 2.81 L, 160% predicted. The residual volume: Total lung capacity ratio is 48%. Diffusing capacity: The diffusing capacity unadjusted for hemoglobin and carboxyhemoglobin is 10.5, 54% predicted. The diffusing capacity adjusted for alveolar volume is 2.68, 58% predicted. Impression: There is a moderately severe obstructive abnormality. There is no significant improvement after inhaling a single dose of albuterol. The increase in residual volume to total lung volume ratio is consistent with hyperinflation from an obstructive abnormality. The diffusing capacity unadjusted for hemoglobin and carboxyhemoglobin is moderately decreased and remains moderately decreased when adjusted for alveolar volume. There are no prior studies for comparison
== END 2023-12-09 10:08 | disposition home or self-care (01) ==
LOC: ANHPFT 10:08
PROVIDERS: PCP Family Medicine; Visit Provider Nurse Practitioner Family
DX: R06.09 Other forms of dyspnea (principal); J44.9 Chronic obstructive pulmonary disease, unspecified
CPT/HCPCS: 94060; 94618; 94726; 94729

== ENCOUNTER 2024-03-03 12:36 | Outpatient (CLI) | payer MEDICARE, OTHER, SELFPAY ==
[2024-03-03 13:59] LABS: Hematocrit 45.4 % (42.0-52.0); Hemoglobin 14.4 g/dL (14.0-18.0); Mean Corpuscular HGB Conc 31.7 g/dl (32-36); Mean Corpuscular Hemoglobin 30.7 pg (26-34); Mean Corpuscular Volume 96.8 fl (80-100); Mean Platelet Volume 10.1 fl (7.4-10.4); Platelet Count Result 259 k/mm3 (150-375); Red Blood Count 4.69 M/mm3 (4.6-6.20); Red Cell Distribution Width 13.2 % (11.5-14.5)
[2024-03-03 14:00] LABS: Appearance Urine Clear (Clear); Bilirubin Urine Negative (Negative); Blood Urine Negative (Negative); Color Urine Yellow (Yellow); Glucose Urine UA Negative (Negative); Ketones Urine Negative (Negative); Leukocyte Esterase Ur Negative LEU/UL (Negative); Nitrate Urine Negative (Negative); Protein Urine Negative (Negative); Specific Grav Ur 1.022 (1.001-1.035); pH Urine 5.5 (5.0-9.0)
[2024-03-03 14:33] LABS: Add Urine Microscopic? NO
[2024-03-03 15:02] LABS: Alanine Aminotransferase 20 U/L (6-50); Albumin Level 4.2 g/dL (3.5-5.1); Alkaline Phosphatase 115 U/L (38-126); Anion Gap 4 mmol/L (4-12); Aspartate Amino Transferase 33 U/L (17-59); Bilirubin,Total 0.8 mg/dL (0.2-1.3); Blood Urea Nitrogen 15 mg/dL (9-20); Calcium 9.3 mg/dL (8.4-10.2); Carbon Dioxide 29 mmol/L (22-30); Chloride 106 mmol/L (98-107); Cholesterol 173 mg/dL (0-200); Estimated Glomerular Filt Rate > 60; Glucose 98 mg/dL (65-110); HDL Direct 36 mg/dL; Sodium 139 mmol/L (137-145); Triglycerides 113 mg/dL (<150)
[2024-03-03 15:13] LABS: LDL Cholesterol Direct 119 mg/dL
[2024-03-03 16:02] LABS: Hemoglobin A1C 6.4 % (<5.7)
== END 2024-03-03 12:37 | disposition home or self-care (01) ==
LOC: ANHGOSHLAB 12:39
PROVIDERS: PCP Family Medicine; Visit Provider Family Medicine
DX: E78.5 Hyperlipidemia, unspecified (principal); R35.1 Nocturia; R53.83 Other fatigue; R73.01 Impaired fasting glucose; H40.1131 Primary open-angle glaucoma, bilateral, mild stage; N13.8 Other obstructive and reflux uropathy; N40.1 Benign prostatic hyperplasia with lower urinary tract symptoms
CPT/HCPCS: 36415; 80053; 80061; 81003; 83036; 84153; 84443; 85027

== ENCOUNTER 2024-05-05 12:02 | Emergency (ER) | payer MEDICARE, OTHER, SELFPAY ==
[2024-05-05 12:26] VITALS: BP 140/65; PULSE 89; RESP 18; TEMP 37.4; O2SAT 94
--- NOTE | 2024-05-05 13:38 | ED.WOUNDLAC ---
HPI - Wound/Laceration General Chief Complaint: Wound/Laceration Stated Complaint: Dog Bite Source: patient Mode of arrival: ambulatory Limitations: no limitations History of Present Illness HPI narrative: 73-year-old male presented for complaint of a skin tear to the left elbow sustained today. States he fell when his dog knocked him down. He struck the elbow on the grass. He denies pain to the arm, deformity or swelling. Denies loss consciousness. Denies any other injury. Related Data Home Medications Medication Instructions Recorded Confirmed latanoprost 0.005 % eye drops 1 drop ophthalmic (eye) QPM 10/24/03/15/24 Allergies Allergy/AdvReac Type Severity Reaction Status Date / Time No Known Allergies Allergy Verified 03/15/24 10:32 Review of Systems Review of Systems: CONSTITUTIONAL: Denies body aches, fever, chills, or sweats. EYES: Denies visual changes, redness, or discharge. ENT: Denies rhinorrhea, congestion CARDIOVASCULAR: Denies chest pain, palpitations, or edema. RESPIRATORY: Denies cough or dyspnea. GASTROINTESTINAL: Denies abdominal pain, nausea, vomiting, or diarrhea. SKIN: reports skin tear left arm MUSCULOSKELETAL: Denies back pain, joint pain, or myalgia. NEUROLOGIC: Denies headache, numbness, tingling, or weakness. [facility] Past Medical History Medical History BPH w urinary obs/LUTS Chronic hepatitis B Chronic pancreatitis Colon cancer screening COPD (chronic obstructive pulmonary disease) Cyst of pancreas Hepatitis B History of hepatitis B IPMN (intraductal papillary mucinous neoplasm) Other specified soft tissue disorders Skin cancer Surgical History Surgical History H/O right inguinal hernia repair H/O umbilical hernia repair S/P inguinal hernia repair Laparoscopic incarcerated left inguinal hernia repair with mesh, da Carline assisted 2. Laparoscopic enterolysis, da Carline assisted 3. Laparoscopic repair of small-bowel serosal tear, da Carline assisted 03/30/23 Family History Family History Other Diabetes mellitus Hypertension Social History Social History Social History: Smoking packs per day: 2 Smoking cigarettes per day: 40.0 Years smoked: 15 Smoking pack-years: 30.00 Smoking status: Former smoker Tobacco type: cigarettes Smoking end date: 11/08/01 Alcohol intake: former Substance use: never Substance use type: does not use Lack of Transportation: No Lack of Food: Never True Current Housing: I Have Housing Concerned About Future Housing: No Difficulty Paying Gas/Electric Bills: No Difficulty Paying for Meds: No Currently Unemployed: YES Education: Decline to Answer Difficulty w/ Childcare or Family Care: No Living arrangements: with family Occupation/Education: retired Gender identity (if verbalized by the patient): Male Sexual Orientation (if Verbalized by the Patient): Straight or Heterosexual Spiritual care concerns: No Comments At time of signature, I have reviewed and agree with nursing past medical, surgical, social and family history unless otherwise noted. Please see nursing chart for further information. There is no relevant family history pertinent to the presenting complaint Exam Narrative: GENERAL: Well-appearing HEAD: Normocephalic, atraumatic. ENT: Mucous membranes moist. Oropharynx without edema, erythema or lesions. NECK: Supple. No lymphadenopathy CHEST: Clear to auscultation. HEART: Regular rate and rhythm. SKIN: Warm, dry. Left elbow with irregular skin avulsion with flap, approx 3cm U shaped. No swelling or deformity. full ROM to LUE. NEURO: Alert and oriented x3. Course Course Emergency Course: Patient is aware of diagnosis, understan
== END 2024-05-05 14:10 | disposition home or self-care (01) ==
PROVIDERS: Emergency Provider Nurse Practitioner Family; PCP Family Medicine
DX: S51.002A Unspecified open wound of left elbow, initial encounter (principal); W54.1XXA Struck by dog, initial encounter; N40.1 Benign prostatic hyperplasia with lower urinary tract symptoms; J44.9 Chronic obstructive pulmonary disease, unspecified; Z87.891 Personal history of nicotine dependence
CPT/HCPCS: 99212; G0463

== ENCOUNTER 2024-05-13 12:06 | Outpatient (CLI) | payer MEDICARE, OTHER, SELFPAY ==
--- NOTE | ~2024-05-13 | XR_ITS ---
EXAMINATION: XR chest 2V Exam Date/Time: 05/13/2024 12:10 CDT HISTORY: R06.00 - Dyspnea, unspecified Comparison: 04/13/2022, 11/28/2015, 12/22/2010; CT abdomen pelvis 05/19/2023. RESULT: Lines, tubes, and devices: None. Lungs and pleura: Senescent/emphysematous change. 13 mm peripheral left midlung nodular opacity. Cardiomediastinal silhouette: Stable. Other: No acute osseous or upper abdominal finding. IMPRESSION: No acute cardiopulmonary process. 13 mm left peripheral midlung nodular opacity, recommend low-dose noncontrast CT of the chest for fur ther evaluation. Reviewed, dictated and finalized at location K. IMPRESSION: No acute cardiopulmonary process. 13 mm left peripheral midlung nodular opacity, recommend low-dose noncontrast C T of the chest for further evaluation.
== END 2024-05-13 12:07 ==
PROVIDERS: PCP Family Medicine; Visit Provider Nurse Practitioner Family
DX: R91.1 Solitary pulmonary nodule (principal)
CPT/HCPCS: 71046

== ENCOUNTER 2024-07-18 11:06 | Outpatient (CLI) | payer MEDICARE, OTHER, SELFPAY ==
--- NOTE | ~2024-07-18 | CT_ITS ---
EXAMINATION:CT chest high resolution wo la DATE: 07/18/2024 11:26 INDICATION: Solitary pulmonary nodule. TECHNIQUE: Computed tomography (CT) of the chest was performed without intravenous contrast. Automate d exposure control and iterative reconstruction technique were employed. The dose-length product (DLP ) was 268.30 mGy-cm. COMPARISON: CT abdomen and pelvis 05/19/2023 FINDINGS: There is moderate emphysema. There is mild atelectasis bilaterally. There is scarring in pa raspinal right lower lobe. No pleural effusion. The heart size is normal. There are coronary artery c alcifications. No pericardial effusion. There is bilateral gynecomastia. There are old healed bilater al rib fractures. There is moderate thoracic spondylosis. IMPRESSION: 1. Moderate emphysema. Reviewed, dictated and finalized at location A. IMPRESSION: 1. Moderate emphysema.
== END 2024-07-18 11:07 | disposition home or self-care (01) ==
LOC: MICIMG 11:07
PROVIDERS: PCP Family Medicine; Visit Provider Nurse Practitioner Family
DX: R91.1 Solitary pulmonary nodule (principal); J43.9 Emphysema, unspecified; Z77.090 Contact with and (suspected) exposure to asbestos
CPT/HCPCS: 71250

== ENCOUNTER 2025-02-10 10:12 | Emergency (ER) | payer MEDICARE, OTHER, SELFPAY ==
[2025-02-10 10:39] VITALS: BP 156/66; PULSE 96; RESP 16; TEMP 36.9; O2SAT 95
--- NOTE | 2025-02-10 11:10 | ED_ITS ---
HPI - Extremity Injury (Upper) General Chief Complaint: Extremity Injury, Upper Stated Complaint: R HAND INJURY Time Seen by Provider: 02/10/25 11:10 Source: patient, RN notes reviewed and old records reviewed Mode of arrival: ambulatory Limitations: no limitations History of Present Illness HPI narrative: 74 year old male presents to [facility] care with complaints of slipping on gum ball when carrying groceries and fell on the asphalt with injury to his right medial méndez hand with flap and linear laceration noted with some bleeding, Patient reports that he washed laceration area with soap and water and dressing with gauze and Coban applied prior to arrival. Patient reports that he did not hit his head and had no LOC at time of fall.Tetanus is up to date within past 5 years.. Patient is able to move all fingers without difficulty and is able to make fist without difficulty,radial pulse present of good quality right wrist. MD complaint: injury to: right and hand Onset (ago): hour(s) (within past hour prior to arrival) Other injuries: none Place: outdoors Severity scale (1-10): 2 Treatments prior to arrival: bandage Related Data Home Medications ?Medication ?Instructions ?Recorded ?Confirmed ?Last Taken ?Type latanoprost 0.005 % eye drops 1 drop ophthalmic (eye) QPM 10/24/09/28/24 Unknown History Allergies Allergy/AdvReac Type Severity Reaction Status Date / Time No Known Allergies Allergy Verified 02/10/25 10:39 Review of Systems Review of Systems: CONSTITUTIONAL: Denies fever, chills, or sweats. CARDIOVASCULAR: Denies chest pain, palpitations, or edema. RESPIRATORY: Denies cough or dyspnea. SKIN: Reports laceration to the medial méndez aspect of his right hand after slipping on gum ball and falling on the asphalt MUSCULOSKELETAL: Denies musculoskeletal pain NEUROLOGIC: Denies numbness, or weakness. 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 Laparoscopic enterolysis, da Carline assisted 3. Laparoscopic repair of small-bowel serosal tear, da Carline assisted 03/30/23 H/O umbilical hernia repair H/O right inguinal hernia repair Family History Family History Other Diabetes mellitus Hypertension Social History Social History Social History: Smoking packs per day: 2 Smoking cigarettes per day: 40.0 Years smoked: 15 Smoking pack-years: 30.00 Smoking status: Former smoker Tobacco type: cigarettes Smoking end date: 11/08/01 Alcohol intake: former Substance use: never Substance use type: does not use Lack of Transportation: No Lack of Food: Never True Current Housing: I Have Housing Concerned About Future Housing: No Difficulty Paying Gas/Electric Bills: No Difficulty Paying for Meds: No Currently Unemployed: YES Education: Decline to Answer Difficulty w/ Childcare or Family Care: No Living arrangements: with family Occupation/Education: retired Gender identity (if verbalized by the patient): Male Sexual Orientation (if Verbalized by the Patient): Straight or Heterosexual Spiritual care concerns: No Comments At time of signature, agree with nursing past medical, surgical, social and family history. There is no relevant family history pertinent to the presenting complaint Exam Narrative: GENERAL: Well-appearing, well-nourished, and in no acute distress. HEAD: Normocephalic, atraumatic. NECK: Supple.no lymphadenopathy CHEST: Clear to auscultation. No respiratory distress. no acute cough or tachypnea, history of COPD SAO2 95% on room air HEART: Regular rate and rhythm. No murmur heard. Normal peripheral pulses. EXTREMITIES: Normal range of motion. No edema. SKIN: Warm, dry, no rash. Reports laceration to the medial méndez aspect of his right hand with flap and linear aspect of laceration, bleeding noted.. NEURO: No focal deficits. Alert and oriented x3. Course Course Level of Care: Express Care Visit Vital Signs Vital signs: Vital Signs Temperature 36.9 C 02/10/25 10:39 Pulse Rate 96 02/10/25 10:39 Respiratory Rate 16 02/10/25 10:39 Blood Pressure 156/66 H 02/10/25 10:39 Pulse Oximetry 95 02/10/25 10:39 Temperature 36.9 C 02/10/25 10:39 Pulse Rate 96 02/10/25 10:39 Respiratory Rate 16 02/10/25 10:39 Blood Pressure 156/66 H 02/10/25 10:39 Pulse Oximetry 95 02/10/25 10:39 Procedures Laceration hand: Date: 02/10/25 Time: 11:45 Site: hand (medial méndez aspect) Side (If applicable): right Size (cm): 5 Description: linear and flap Depth: simple, single layer Local Anesthetic: lidocaine 1% Amount of anesthesia used (mL): 10 Pre-repair: wound explored, irrigated extensively and other (cleansed with wound care solution) ====== Skin Level ====== Skin layer closed with: nylon Size (cm): 4-0 Number of sutures: 13 Technique: simple, interrupted ====== Subcutaneous Layer ====== ====== Muscle Layer ====== ====== Tendon Layer ====== Dressing: Wound cleansed with wound cleanser solution and irrigated extensively. Patient has area of flap type of laceration and also areas of linear laceration to the medial méndez aspect of right hand. 10ml of Lidocaine used to lacalize site and 13 interrupted stitches applied to laceration site using Ethilon suture 4.0. Dressing applied to site using Telfa, gauze and Coban . patient tolerated well. MDM - Extremity Injury (Upper) Differential Diagnosis Differential diagnosis: Likely other (laceration of right hand, abulsion of skin, flap laceration of right hand, laceration medial méndez aspect right hand) Medical Records Attestation: I reviewed the patient's medical records. Critical Care Time Critical Care Time Critical Care Time: No Discharge Plan Discharge Clinical Impression: Laceration of hand Qualifiers: Encounter type: initial encounter Foreign body presence: without foreign body Laterality: right Qualified Code(s): S61.411A - Laceration without foreign body of right hand, initial encounter Patient Disposition: Home Condition: Stable Instructions: Antibiotic Form, Laceration (ED) Additional Instructions: Keep the area clean and dry No continuous water contact like dishes or swimming You may bathe and wash you hair caution with hair products or lotions cover right hand with plastic bag and tape for closure dressing of choice change daily recommend Telfa and gauze wrap watch for any infection--redness, swelling, drainage follow up with PCP for suture/staple in removal *10 days recheck with PCP if further concerns or problems antibiotic as prescribed complete all doses If your symptoms persist, change or worsen significantly before you can contact your personal physician then please, without delay, go to the emergency department for further evaluation. Follow-up with PCP in 7-10 days or sooner if needed Follow up with PCP soon in regards to your blood pressure which is elevated above threshold for referral. Blood pressure above 120/80 may indicate pre- hypertension. Patient Language: Slovenian Prescriptions: New cephalexin 500 mg capsule 500 mg PO Q8H Qty: 21 0RF No Action Trelegy Ellipta 100-62.5-25 mcg blister with device 1 inh inhalation Q24H 90 Days Qty: 180 3RF Rx Instructions: This replaces Advair. Inhale deeply. Rinse and spit after each use. latanoprost 0.005 % drops 1 drop EACH EYE QPM albuterol sulfate [Ventolin HFA] 90 mcg/actuation HFA aerosol inhaler 1 puff INHALATION Q4H PRN (Reason: shortness of breath or wheezing) Qty: 8 3RF tamsulosin 0.4 mg capsule See Rx Instructions .ROUTE .COMPLEX Qty: 180 3RF Dose Instruction: TAKE 2 CAPSULES BY MOUTH EVERY DAY AT BEDTIME Rx Instructions: TAKE 2 CAPSULES BY MOUTH EVERY DAY AT BEDTIME Follow-up/Referrals: Gerber Wagenr MD [Primary Care Provider] - Time of Disposition: 12:42 Quality Haile Coma Scale Eyes: Open Verbal: Oriented and Alert Motor: Follows Commands Haile Coma Total Score: 15
[2025-02-10] MEDS: LIDOCAINE 1% LOCAL INJ 2 ML AMPUL 6 ML INFILTRATE (11:45)
[2025-02-10] MEDS: LIDOCAINE 1% LOCAL INJ 2 ML AMPUL 4 ML INFILTRATE (12:15)
== END 2025-02-10 12:47 | disposition home or self-care (01) ==
PROVIDERS: Emergency Provider Registered Nurse; PCP Family Medicine
DX: S61.411A Laceration without foreign body of right hand, initial encounter (principal); W18.09XA Striking against other object with subsequent fall, initial encounter; Z87.891 Personal history of nicotine dependence; N40.1 Benign prostatic hyperplasia with lower urinary tract symptoms; J44.9 Chronic obstructive pulmonary disease, unspecified; H40.9 Unspecified glaucoma; K86.1 Other chronic pancreatitis; Z85.828 Personal history of other malignant neoplasm of skin; Z86.19 Personal history of other infectious and parasitic diseases; Z86.018 Personal history of other benign neoplasm
CPT/HCPCS: 12002; 99213; G0463; J2003

== ENCOUNTER 2025-06-22 11:24 | Outpatient (CLI) | payer MEDICARE, OTHER, SELFPAY ==
--- OUTSIDE RECORDS SUMMARY | 2025-06-22 11:28 | XMS_ITS | Clinical Summary ---
Author Organization [facility] [employer] Address [address] [place] [address] Care Team Providers Care [employer] Demonstrator Name Role Phone Gerber Wagner MD Primary Care Provider Source Comments [facility] [employer],non-owned Affiliates and Associated Physician Practices is amultiple site organization consisting of ambulatory clinics and hospital sitesin [place], [place], [place]. This disclosure is being madepursuant to the Care Everywhere program and may not contain all information available regarding this patient. Last updated 18.[facility] [employer] Allergies No known active allergies Medications * Be aware that medications may not be up to date on this document. Alwaysverify current medications with the patient. acetaminophen (TYLENOL) 325 MG tabletIndications:Di slocation of temporomandibular joint, initial encounter Take 2 (two) tablets by mouth every 6 hours as needed for Fever or Pain Maximum allowable Acetaminophen amount = 4 Grams (4000 mg) / 24 hours. 04/15/20 22 Active senna (SENOKOT) 8.6 MG tablet Take 1 (one) tablet by mouth once daily 20 tablet 04/15/20 22 Active chlorhexidine (PERIDEX) 0.12 % solution Swish and spit 2 times daily 100 mL 1 04/15/20 22 Active latanoprost (XALATAN) 0.005 % ophthalmic solution Instill 1 (one) drop into both eyes at bedtime 0 04/15/20 22 Active gabapentin (NEURONTIN) 100 MG capsule Take 1 (one) capsule by mouth 3 times daily 04/15/20 22 Active oxyCODONE, immediate release, (ROXICODONE) 5 MG tabletIndications:Di slocation of temporomandibular joint, initial encounter Take 1 (one) tablet by mouth every 4 hours as needed 15 tablet 04/15/20 22 Active Active Problems Problem Noted Date Diagnosed Date Mandible fracture 04/15/2022 Dislocation of jaw 04/13/2022 Social History Tobacco Use Types Packs/Day Years Used Date Smoking Tobacco: Former Smokeless Tobacco: Never Alcohol Use Standard Drinks/Week Comments No 0 (1 standard drink = 0.6 oz pur e alcohol) AUDIT-C Answer Date Recorded Q1: How often do you have a drink containing alcohol? Never 04/15/2022 Q2: How many drinks containi ng alcohol do you have on a typical day when you are drinking? Patient does not drink Q3: How often do you have si x or more drinks on one occasion? Never 04/15/2022 Hunger Vital Sign Answer Date Recorded Within the past 12 months, y ou worried that your food would run out before you got the money to buy more. Never true 04/15/20 22 Within the past 12 months, t he food you bought just didn't last and you didn't have money to get more. Never true 04/15/2022 Sex and Gender Information Value Date Recorded Sex Assigned at Not on file Legal Sex Male 6:34 PM [employer]US[employer] PROF[employer] Gender Identity Not on file Sexual Orientation Not on file Last Filed Vital Signs Vital Sign Reading Time Taken Comments Blood Pressure 125/55 04/15/2022 3:50 PM CDT Pulse 106 04/15/2022 4:10 PM CDT Temperature 36.9 C (98.5 F) 04/15/2022 3:50 PM CDT Respiratory Rate 18 04/15/2022 4:10 PM CDT Oxygen Saturation 100% 04/15/2022 4:10 PM CDT Inhaled Oxygen Concentration - - Weight 78.9 kg (174 lb) 04/13/2022 6:20 PM CDT Height 172.7 cm (5' 8) 04/13/2022 6:20 PM CDT Body Mass Index 26.46 04/13/2022 6:20 PM CDT Plan of Treatment Health Maintenance Due Date Last Done Comments COLON MONITORING 1949 COLONOSCOPY - COLON CA SCREENING 1949 CT COLONOGRAPHY - COLON CA SCREENING 1949 FIT - COLON CA SCREENING 1949 FLEX SIG - COLON CA SCREENING 1949 LIPID TESTING 1950 MEDICARE AWV 12 MONTHS 1949 HEPATITIS C SCREENING 09/10/1967 DTAP/TDAP/TD VACCINES (1 - Tdap) 1968 PNEUMOCOCCAL VACCINE 50+ (1 of 1 - PCV) 1999 ZOSTER VACCINE (1 of 2) 1999 COLOGUARD (AGES 45-75) - COL ON CA SCREENING 07/05/2023 07/05/2020 Colorectal Cancer Screening 07/05/2023 COVID-19 VACCINE (2 - 2023-2 5 season) 2024 01/16/2021 Respiratory Syncytial Virus (RSV) Vaccine Pt: or over 60 yrs (1 - 1-dose 75+ series) 2024 DEPRESSION SCREENING 11/08/2024 INFLUENZA VACCINE (#1) 2025 0, 10/18/2018 HEPATITIS B VACCINE Aged Out No longe r eligible based on patient's age to complete this topic HIB VACCINE Aged Out No longer eligi ble based on patient's age to complete this topic HPV VACCINE Aged Out No longer eligi ble based on patient's age to complete this topic MENINGOCOCCAL (Group B) VACCINE SHARED DECISION-MAKING Aged Out No longer eligible based on patient's age to complete this topic MENINGOCOCCAL GROUPS A/C/Y/W VACCINE Aged Out No longer eligible b ased on patient's age to complete this topic Insurance MEDICARE MEDICARE MEDICARE Advance Directives * Full Code (Latest Code Status on File) Date Activated Date Inactivated Comments 04/14/2022 1:41 AM 04/15/2022 7:49 PM Care Teams [employer] Dem[employer]ator Relationship Specialty Start Date End Date Gerber Wagner MD [address] [facility] [place] [address] PCP - General 01/09/14
--- OUTSIDE RECORDS SUMMARY | 2025-06-22 11:28 | XMS_ITS | Clinical Summary ---
Author Organization [facility] Address [facility] [place] [address] Care Team Providers Care Clinical Product Specialist Name Role Phone Gerber Wagner MD Primary Care Provider Allergies No known active allergies Medications chlorhexidine (PERIDEX) 0.12 % solution 04/15/2022 Active Advair HFA 115-21 mcg/actuation inhaler 04/22/2022 Active gabapentin (NEURONTIN) 100 mg capsule Take 100 mg by mouth 2 (two) times a day 04/09/2022 Active HYDROcodone-miguel taminophen (NORCO) 5-325 mg per tablet 04/22/2022 Activ e latanoprost (XALATAN) 0.005 % ophthalmic solution 04/22/2022 Active oxyCODONE (ROXICODONE) 5 mg immediate release tablet 04/15/2022 Acti ve tamsulosin (FLOMAX) 0.4 mg extended release capsule TAKE 2 CAPSULES BY MOUTH EVERY DAY AT BEDTIME 09/24/2023 Active Active Problems Problem Noted Date Diagnosed Date Mandible fracture 04/15/2022 Dislocation of jaw 04/13/2022 Surgical History Surgery Date Site/Laterality Comments APPENDECTOMY N/A CATARACT EXTRACTION Bilateral CHOLECYSTECTOMY N/A BASAL CELL CARCINOMA EXCISION HIP SURGERY Left HERNIA REPAIR Medical History Medical History Date Comments COPD (chronic obstructive pulmonary disease) Hearing loss Agent orange exposure Skin cancer GERD (gastroesophageal reflux disease) Glaucoma Cataract Family History Medical History Relation Name Comments Heart disease Father COPD Mother Relation Name Status Comments Father Mother Social History Tobacco Use Types Packs/Day Years Used Date Smoking Tobacco: Former Cigarettes AUDIT-C Answer Date Recorded Q1: How often do you have a drink containing alcohol? Never 10/18/2023 Q2: How many drinks containi ng alcohol do you have on a typical day when you are drinking? Patient does not drink Frequency of Binge Drinking Not on file 10/08 Personal Safety Answer Date Recorded Have you ever been in or are you currently in a harmful physical or emotional relationship or is someone making you feel afraid or unsafe? Denies 10/18/2023 Sex and Gender Information Value Date Recorded Sex Assigned at Not on file Legal Sex Male 6:03 AM [employer] Gender Identity Not on file Sexual Orientation Not on file Obstetrics History Last Filed Vital Signs Vital Sign Reading Time Taken Comments Blood Pressure 128/63 10/18/2023 12:00 PM [employer] Pulse 78 10/18/2023 12:00 PM [employer] Temperature 36.9 C (98.5 F) 10/18/2023 9:29 AM WE[employer] DRI[employer]OL Respiratory Rate 20 10/18/2023 12:00 PM WE[employer]RI[employer]OL Oxygen Saturation 96% 10/18/2023 12:00 PM WE[employer]RI[employer]OL Inhaled Oxygen Concentration - - Weight 79.8 kg (176 lb) 10/18/2023 9:29 AM WE[employer]RI[employer] Height 170.2 cm (5' 7) 10/18/2023 9:29 AM WE[employer] DRI[employer]OL Body Mass Index 27.57 10/18/2023 9:29 AM WE[employer]RI[employer]OL Plan of Treatment Health Maintenance Due Date Last Done Comments Colon Cancer Screening-Colonoscopy 1950 Depression Screening 1949 Hepatitis C Screening 1949 Hepatitis B Screening 1967 Zoster Vaccine (1 of 2) 1999 Abdominal Aortic Aneurysm (A AA) Screen 2014 Well Visit 65+ 2014 Pneumococcal vaccine 65+ (2 of 2 - PCV20 or PCV21) 09/04/2017 09/04/2016 Covid-19 Vaccine (2 - 2023-2 5 season) 2024 01/16/2021 Fall Risk Assessment 10/18/2024 10/18/2023 Influenza Vaccine (#1) 2025 0, 10/18/2018, 09/08/2017, Additional history exists DTaP/Tdap/Td Vaccine (2 - Td or Tdap) 04/13/2032 04/13/2022 [place] [id number] MEDICARE FOR LIFE Jose [id number] MEDICARE FOR LIFE Advance Directives For more information, please contact: [phone] * Full Code (Latest Code Status on File) Date Activated Date Inactivated Comments 10/18/2023 9:14 AM 10/18/2023 5:43 PM Care Teams Clinical Product Specialist Relationship Specialty Start Date End Date Gerber Wagner MD [address] [facility] [address] [place] [address] PCP - General Family Medicine 04/17/22
--- OUTSIDE RECORDS SUMMARY | 2025-06-22 11:28 | XMS_ITS | Continuity of Care Document ---
Author Name [facility] Organization [facility] Care Team Providers Care Exotic Dancer Name Role Phone [facility] Unavailable Unavailable Immunizations Combined list of available immunizations from the Department of Defense and Veterans Affairs facilities. Immunization Series Date Given Administered By Site Reaction Lot Number CVX Code Drug Park Worker Supervisor Status Comments Source influenza, injectable, quadrivalent, preservative free 2019 ALUL, () Not Given influenza , injectabl e, quadrival ent, preservat ivon free [facility] influenza, high-dose, quadrivalent 2019 ALUL, () Not Given influenza , high-dose , quadrival ent [facility] influenza, high-dose, quadrivalent 2019 ALUL, () Not Given influenza , high-dose , quadrival ent [facility] Influenza, high dose seasonal 2016 ALUL, () Not Given Influenza , high dose seasonal [facility] Influenza, seasonal, injectable, preservative free 2013 ALUL, RUSHDI DO () Not Given Influenza , seasonal, injectabl e, preservat ivon free [facility] Social History Combined list of available smoking, tobacco, and other social history from Department of Defense and Veterans Affairs facilities. Social History Type Response Date Comment Sour e This section is an empty social history section. [facility]
--- OUTSIDE RECORDS SUMMARY | 2025-06-22 11:28 | XMS_ITS | Clinical Summary ---
Author Organization [employer] [id number] [facility] Address [address] [place] [address] Care Team Providers Care Upper Marker Name Role Phone Unavailable Primary Care Provider Unavailabl e Social History Tobacco Use Types Packs/Day Years Used Date Smoking Tobacco: Never Assessed Sex and Gender Information Value Date Recorded Sex Assigned at Not on file Legal Sex Male 1:03 PM CDT Gender Identity Not on file Sexual Orientation Not on file Plan of Treatment Health Maintenance Due Date Last Done Comments DTAP/TDAP/TD VACCINES (1 - Tdap) 1968 COLORECTAL SCREENING 1994 Colorectal Cancer Screening 1994 FIT-DNA Q 3 years 1994 FIT/FOBT Q 1 year 1994 Flex Sig/CT Colonography Q 5 years 1994 PNEUMOCOCCAL VACCINE 50+ YEARS (1 of 1 - PCV) 09/14/19 99 ZOSTER VACCINE (1 of 2) 1999 RSV VACCINE (60+ or ) (1 - 1-dose 75+ series) 2024 INFLUENZA VACCINE (#1) 2025 Insurance MEDICARE PART A AND B [employer]
[2025-06-22 12:57] LABS: Hematocrit 45.4 % (42.0-52.0); Hemoglobin 14.7 g/dL (14.0-18.0); Mean Corpuscular HGB Conc 32.4 g/dl (32-36); Mean Corpuscular Hemoglobin 30.6 pg (26-34); Mean Corpuscular Volume 94.6 fl (80-100); Platelet Count Result 290 k/mm3 (150-375); Red Blood Count 4.80 M/mm3 (4.6-6.20); White Blood Count 9.4 K/mm3 (4.5-10.0)
[2025-06-22 13:23] LABS: Add Urine Microscopic? YES; Appearance Urine Clear (Clear); Glucose Urine UA Negative (Negative); Leukocyte Esterase Ur Trace LEU/UL (Negative); Nitrate Urine Negative (Negative); Non Pathogenic Casts 0-2; Specific Grav Ur 1.019 (1.001-1.035)
[2025-06-22 13:28] LABS: Alanine Aminotransferase 21 U/L (6-50); Albumin Level 4.1 g/dL (3.5-5.1); Alkaline Phosphatase 123 U/L (38-126); Anion Gap 7 mmol/L (4-12); Aspartate Amino Transferase 39 U/L (17-59); Bilirubin,Total 0.8 mg/dL (0.2-1.3); Blood Urea Nitrogen 12 mg/dL (9-20); Calcium 9.1 mg/dL (8.4-10.2); Carbon Dioxide 25 mmol/L (22-30); Chloride 105 mmol/L (98-107); Cholesterol 185 mg/dL (0-200); Estimated Glomerular Filt Rate > 60; Glucose 105 mg/dL (65-110); HDL Direct 40 mg/dL; Potassium 4.5 mmol/L (3.4-5.0); Sodium 137 mmol/L (137-145); Total Protein 7.0 g/dL (6.3-8.2); Triglycerides 82 mg/dL (<150)
[2025-06-22 14:56] LABS: Hemoglobin A1C 6.7 % (<5.7)
[2025-06-22 15:08] LABS: Prostate Specific Antigen 2.2 ng/mL (< OR = 4.0); Thyroid Stimulating Hormone 0.996 uIU/mL (0.465-4.680)
== END 2025-06-22 11:25 | disposition home or self-care (01) ==
PROVIDERS: PCP Family Medicine; Visit Provider Physician Assistant
DX: J44.9 Chronic obstructive pulmonary disease, unspecified (principal); E78.5 Hyperlipidemia, unspecified; N40.1 Benign prostatic hyperplasia with lower urinary tract symptoms; N13.8 Other obstructive and reflux uropathy; R73.01 Impaired fasting glucose; R35.1 Nocturia; Z12.5 Encounter for screening for malignant neoplasm of prostate
CPT/HCPCS: 36415; 80053; 80061; 81001; 83036; 84153; 84443; 85027